=== PATIENT | male | born 1940 | race Caucasian/White ===

== ENCOUNTER 2016-07-05 10:56 | Emergency (ER) | payer MEDICARE, OTHER ==
[~2016-07-05] VITALS: Ht 175.3 cm; Wt 85.0 kg
[~2016-07-05 10:56] MED LIST: AVOD0.5C PO; CARV3.12 OR; CLOB-50 EX; CRES10TA OR; FISH1000 PO; GLUCTAB OR; LISI-357 PO; LORTA5 PO; MONT10 PO; PENVK500 PO; POLY10O EACH EYE; SAXA5TAB2 OR; SERT100 PO; TAMS0.4C67 PO; TRIA.025%T TOP; VIST25CA PO; XANA1TAB6 PO
[2016-07-05 10:59] VITALS: BP 149/81; PULSE 80; RESP 12; TEMP 97.5; O2SAT 95
--- NOTE | 2016-07-05 11:48 | PD ---
HPI Chief Complaint: GI Complaint Time Seen by Provider: 11:41 Travel History International Travel<30 days: No Contact w/Intl Traveler<30days: No Traveled to known affect area: No History of Present Illness HPI 75-year-old male presents to the emergency department for evaluation of diarrhea for one week. Patient denies any history of diarrhea this severe. He states he had 4 episodes of diarrhea last night. He woke up this morning and could not make it to the bathroom and had a bowel movement in bed. He states that once he woke up and went to the bathroom, he had another loose stool. Patient states that his daughter gave him Lomotil which is not helping his diarrhea. Patient denies any blood in his stool. He complains of fatigue. He denies he nausea or vomiting. He does report some mild periumbilical and left lower quadrant abdominal pain. He denies any previous abdominal surgeries. He denies any chest pain or shortness of breath. He denies any urinary symptoms. Patient does have a history of pacemaker, BPH, hypertension, diabetes, hyperlipidemia, chronic back pain. He denies being on any antibiotics recently. PFSH Past Medical History Anxiety: Yes Depression: Yes Cardiovascular Problems: Yes ([place], PACEMAKER) High Cholesterol: Yes Coronary Artery Disease: Yes Diabetes: Yes Hypertension: Yes Respiratory: Yes Past Surgical History Coronary Stent: Yes Ear Surgery: Yes (LEFT EAR) Joint Replacement: Yes (LEFT HIP) Other Surgery: Yes (pacemaker) Social History Alcohol Use: No Tobacco Use: Yes Substance Use: No Allergies-Medications (Allergen,Severity, Reaction): Uncoded Allergies: EGG WHITES (Allergy, Severe, Hives, 06/19/12) NUTS (Allergy, Severe, 06/19/12) GRAPES (Adverse Reaction, Severe, 06/19/12) Reported Meds & Prescriptions Reported Meds & Active Scripts Active Penicillin V Potassium 500 Mg Tab 500 Mg PO BID 10 Days Polytrim Opth (Polymyxin/Trimethoprim Sulfate) 10 Ml Soln 1 Drop EACH EYE QID 5 Days Vistaril (Hydroxyzine Pamoate) 25 Mg Cap 25 Mg PO Q6-8HPRN FOR ITCHING Clobetasol Propionate Emo (Clobetasol Propionate [place]ollien) 0.05 % Cre 0.05 % EX BID 14 Days Reported Aristocort (Triamcinolone Acetonide) 0.025 % Oin 0.025 % TOP BID Fish Oil 1,000 Mg Cap 1,000 Mg PO DAILY Metformin (Metformin HCl) 500 Mg Tab 500 Mg OR BID Carvedilol 3.125 mg (Carvedilol) 3.125 Mg Tab 3.125 Mg OR BID Lisinopril 5 mg (Lisinopril) 5 Mg Tab 5 Mg PO DAILY Crestor (Rosuvastatin Calcium) 10 Mg Tab 10 Mg OR DAILY [place] 5/325 (Hydrocodone/Acetaminophen 5/325) 325 Mg/5 Mg Tab 1 Tab PO Q8HPRN Montelukast Sodium 10 Mg Tab 10 Mg PO DAILY Avodart (Dutasteride) 0.5 Mg Cap 0.5 Mg PO DAILY Onglyza (Saxagliptin Hydrochloride) 5 Mg Tab 5 Mg OR DAILY Flomax (Tamsulosin HCl) 0.4 Mg Cap 0.4 Mg PO DAILY Zoloft (Sertraline HCl) 100 Mg Tab 100 Mg PO DAILY Xanax 1 mg (Alprazolam) 1 Mg Tab 1 Mg PO TID Review of Systems Except as stated in HPI: all other systems reviewed are Neg Physical Exam Narrative GENERAL: Well-developed well-nourished elderly male patient, ambulatory. Afebrile. SKIN: Warm and dry. HEAD: Normocephalic. Atraumatic. EYES: No scleral icterus. No injection or drainage. NECK: Supple, trachea midline. No JVD or lymphadenopathy. CARDIOVASCULAR: Regular rate and rhythm without murmurs, gallops, or rubs. RESPIRATORY: Breath sounds equal bilaterally. No accessory muscle use. Lungs sounds are clear to auscultation. GASTROINTESTINAL: Abdomen soft and nondistended. Patient has mild tenderness over left lower quadrant. MUSCULOSKELETAL: No cyanosis, or edema. BACK: Nontender without obvious deformity. No CVA tenderness. Data Data Last Documented VS Vital Signs Date Time Temp Pulse Resp B/P Pulse Ox O2 Delivery O2 Flow Rate FiO2 07/05/16 10:59 97.5 80 12 149/81 95 Room Air Orders Complete Blood Count With Diff (07/05/16 11:39) Comprehensive Metabolic Panel (07/05/16 11:39) Lipase (07/05/16 11:39) Urinalysis - C+S If Indicated (07/05/16 11:39) Electrocardiogram (07/05/16 11:39) C Diff Toxin Pcr (07/05/16 11:39) Ct Abd/Pel W/O Iv Contrast (07/05/16 ) Labs Laboratory Tests Test 07/05/16 07/05/16 11:53 11:55 White Blood Count 9.4 TH/MM3 Red Blood Count 4.28 MIL/MM3 Hemoglobin 12.9 GM/DL Hematocrit 37.9 % Mean Corpuscular Volume 88.6 FL Mean Corpuscular Hemoglobin 30.0 PG Mean Corpuscular Hemoglobin 33.9 % Concent Red Cell Distribution Width 13.7 % Platelet Count 174 TH/MM3 Mean Platelet Volume 7.9 FL Neutrophils (%) (Auto) 80.7 % Lymphocytes (%) (Auto) 8.5 % Monocytes (%) (Auto) 9.0 % Eosinophils (%) (Auto) 1.4 % Basophils (%) (Auto) 0.4 % Neutrophils # (Auto) 7.6 TH/MM3 Lymphocytes # (Auto) 0.8 TH/MM3 Monocytes # (Auto) 0.8 TH/MM3 Eosinophils # (Auto) 0.1 TH/MM3 Basophils # (Auto) 0.0 TH/MM3 CBC Comment DIFF FINAL Differential Comment Sodium Level 142 MEQ/L Potassium Level 3.6 MEQ/L Chloride Level 108 MEQ/L Carbon Dioxide Level 26.1 MEQ/L Anion Gap 8 MEQ/L Blood Urea Nitrogen 17 MG/DL Creatinine 0.92 MG/DL Estimat Glomerular Filtration 80 ML/MIN Rate Random Glucose 142 MG/DL Calcium Level 8.4 MG/DL Total Bilirubin 1.1 MG/DL Aspartate Amino Transf 15 U/L (AST/SGOT) Alanine Aminotransferase 19 U/L (ALT/SGPT) Alkaline Phosphatase 44 U/L Total Protein 6.3 GM/DL Albumin 3.7 GM/DL Lipase 105 U/L Urine Color YELLOW Urine Turbidity HAZY Urine pH 5.5 Urine Specific [place] 1.023 Urine Protein 30 mg/dL Urine Glucose (UA) NEG mg/dL Urine Ketones NEG mg/dL Urine Occult Blood NEG Urine Nitrite NEG Urine Bilirubin NEG Urine Urobilinogen LESS THAN 2.0 MG/DL Urine Leukocyte Esterase NEG Urine WBC 2 /hpf Urine Squamous Epithelial <1 /hpf Cells Urine Amorphous Sediment RARE Urine Hyaline Casts 5 /lpf Urine Mucus FEW /lpf Microscopic Urinalysis Comment CULT NOT INDICATED MDM Medical Decision Making Medical Screen Exam Complete: Yes Emergency Medical Condition: Yes Medical Record Reviewed: Yes Interpretation(s) Last Impressions Abdomen/Pelvis CT 07/05/16 0000 Signed Impressions: Service Date/Time: Tuesday, July 05, 2016 14:13 - CONCLUSION: 1. Mildly nonspecific, nonobstructive bowel gas pattern which could represent a mild ileus or gastroenteritis. 2. Tiny nonobstructing bilateral renal calculi apparent cyst in the upper pole the right kidney. Julio Hernandez MD Differential Diagnosis C. difficile versus gastroenteritis versus diverticulitis versus electrolyte abnormality versus dehydration Narrative Course 75-year-old male presents to the emergency department for evaluation of diarrhea for one week. He has been taking Lomotil that was given to him by his daughter without improvement. Patient states diarrhea is so severe that he has not been making it to the bathroom which is unusual for him. He reports fatigue. EKG, CBC, CMP, lipase, UA, stool for C. difficile are ordered. EKG shows sinus rhythm, heart rate 67, no acute ST changes. Right bundle branch block noted. This was reviewed by my attending physician, Dr. Marrufo.. CBC shows normal WBC of 9.4. CMP shows no acute abnormalities. UA shows no evidence of infection. CT abdomen/pelvis shows mildly nonspecific, nonobstructive bowel gas pattern which could represent a mild ileus or gastroenteritis. 2. Tiny nonobstructing bilateral renal calculi apparent cyst in the upper pole the right kidney. My attending physician, Dr. Marrufo, has also examined patient and agrees with plan and disposition. Patient will be discharged prescription for Flagyl and probiotic. He is encouraged to follow-up with his primary care physician. He is to return for any acute worsening of symptoms. Patient is agreeable. Diagnosis Primary Impression: Gastroenteritis Additional Impression: Diarrhea Qualified Code: A09 - Diarrhea of presumed infectious origin Referrals: Primary Care Physician call for appointment Patient Instructions: Acute Diarrhea (ED), General Instructions Additional Instructions: Take Flagyl as directed. Do not drink alcohol while taking this medication. Take probiotic as directed. Follow-up with your primary care physician. Return to the emergency department for any acute worsening of symptoms. Med/Other Pt SpecificInfo: Prescription(s) given Scripts Lactobacillus Rhamnosus (GG) (Culturelle)10 B Cell Cap1 Cap PO BID 10 Days Ref 0 Prov:Lluvia Bach 07/05/16 Metronidazole (Flagyl)500 Mg [id number] Mg PO TID 10 Days Ref 0 Prov:Lluvia Bach 07/05/16 Disposition: 01 DISCHARGE HOME Condition: Stable Lluvia Bach Jul 05, 2016 11:48
[2016-07-05 12:13] LABS: AUTOMATED NEUTROPHIL # 7.6 TH/MM3 (1.8-7.7); BASOPHIL % 0.4 % (0.0-2.0); EOSINOPHIL # 0.1 TH/MM3 (0-0.4); EOSINOPHIL % 1.4 % (0.0-4.0); HEMATOCRIT 37.9 % (39.0-51.0); HEMO FLAGS DIFF FINAL; LYMPH % 8.5 % (9.0-44.0); LYMPHOCYTE # 0.8 TH/MM3 (1.0-4.8); MEAN CELL VOLUME 88.6 FL (80.0-100.0); MEAN CORPUSCULAR HGB CONC 33.9 % (32.0-36.0); NEUT % 80.7 % (16.0-70.0); PLATELET COUNT 174 TH/MM3 (150-450); RED BLOOD COUNT 4.28 MIL/MM3 (4.50-5.90); RED CELL DISTRIBUTION WIDTH 13.7 % (11.6-17.2); WHITE BLOOD COUNT 9.4 TH/MM3 (4.0-11.0)
[2016-07-05 12:19] LABS: BLOOD, URINE NEG (NEG); COMMENT (UR) CULT NOT INDICATED; CULTURE IF INDICATED CULT NOT INDICATED; GLUCOSE,URINE NEG (NEG); HYALINE CAST, URINE 5 /lpf (RARE); KETONE, URINE NEG (NEG); MUCUS URINE FEW /lpf (OCC); NITRITE,URINE NEG (NEG); PH, URINE 5.5 (5.0-8.5); SQUAMOUS EPITHELIAL CELL URINE <1 /hpf (0-5); URINE COLOR YELLOW (YELLW/STRAW)
[2016-07-05 12:40] LABS: ALT (GPT) 19 U/L (12-78); ANION GAP 8 MEQ/L (5-15); AST (GOT) 15 U/L (15-37); BICARBONATE 26.1 MEQ/L (21.0-32.0); BLOOD UREA NITROGEN 17 MG/DL (7-18); CHLORIDE 108 MEQ/L (98-107); GLOMERULAR FILTRATION RATE 80 ML/MIN (>89); POTASSIUM 3.6 MEQ/L (3.5-5.1); SODIUM (NA) 142 MEQ/L (136-145)
[2016-07-05 12:42] LABS: ALKALINE PHOSPHATASE 44 U/L (45-117); TOTAL BILIRUBIN ADULT 1.1 MG/DL (0.2-1.0)
--- NOTE | 2016-07-05 14:41 | RADRPT ---
EXAM DATE/TIME: 07/05/2016 14:13 [facility] COMPARISON: No previous studies available for comparison. INDICATIONS : Diarrhea for one week. Weakness. ORAL CONTRAST: No oral contrast ingested. RADIATION DOSE: 15.06 CTDIvol (mGy) MEDICAL HISTORY : Cardiovascular disease. Hypertension. Diabetes mellitus type 2. SURGICAL HISTORY : None. ENCOUNTER: Initial ACUITY: 1 day PAIN SCALE: 4/10 LOCATION: abdomen TECHNIQUE: Volumetric scanning of the abdomen and pelvis was performed. Using automated exposure control and ad justment of the mA and/or kV according to patient size, radiation dose was kept as low as reasonably achievable to obtain optimal diagnostic quality images. FINDINGS: LOWER LUNGS: The visualized lower lungs are clear. LIVER: Homogeneous density without lesion. There is no dilation of the biliary tree. No calcified gallston es. SPLEEN: Normal size without lesion. PANCREAS: Within normal limits. KIDNEYS: Normal in size and shape. There is no solid mass or hydronephrosis. There are tiny less than 1 mm bi lateral renal calculi. Ureters are unremarkable. There is apparent cyst in the upper pole of the righ t kidney. ADRENAL GLANDS: Within normal limits. VASCULAR: There is no aortic aneurysm. BOWEL/MESENTERY: Gas and stool are noted segmentally in the colon. There are several loops of nondilated air-containin g small bowel several small air fluid levels. There is no free air or fluid. There is no free intrape ritoneal air or fluid. ABDOMINAL WALL: Within normal limits. RETROPERITONEUM: There is no lymphadenopathy. BLADDER: No wall thickening or mass. REPRODUCTIVE: Within normal limits. INGUINAL: There is no lymphadenopathy or hernia. MUSCULOSKELETAL: Does post left hip arthroplasty. There is osteopenia, degenerative change and mild scoliosis. CONCLUSION: 1. Mildly nonspecific, nonobstructive bowel gas pattern which could represent a mild ileus or gastroe nteritis. 2. Tiny nonobstructing bilateral renal calculi apparent cyst in the upper pole the right kidney. Julio Hernandez MD on July 05, 2016 at 14:34 Board Certified Radiologist. This report was verified electronically.
[2016-07-05] MEDS ORDERED: METR-1 PO (15:06)
[2016-07-05] MEDS ORDERED: CULT10CA4 PO (15:09)
--- NOTE | 2016-07-05 15:24 | PD ---
Data Data Last Documented VS Vital Signs Date Time Temp Pulse Resp B/P Pulse Ox O2 Delivery O2 Flow Rate FiO2 07/05/16 15:21 18 07/05/16 10:59 97.5 80 149/81 95 Room Air Orders Complete Blood Count With Diff (07/05/16 11:39) Comprehensive Metabolic Panel (07/05/16 11:39) Lipase (07/05/16 11:39) Urinalysis - C+S If Indicated (07/05/16 11:39) Electrocardiogram (07/05/16 11:39) C Diff Toxin Pcr (07/05/16 11:39) Ct Abd/Pel W/O Iv Contrast (07/05/16 ) Labs Laboratory Tests Test 07/05/16 07/05/16 11:53 11:55 White Blood Count 9.4 TH/MM3 Red Blood Count 4.28 MIL/MM3 Hemoglobin 12.9 GM/DL Hematocrit 37.9 % Mean Corpuscular Volume 88.6 FL Mean Corpuscular Hemoglobin 30.0 PG Mean Corpuscular Hemoglobin 33.9 % Concent Red Cell Distribution Width 13.7 % Platelet Count 174 TH/MM3 Mean Platelet Volume 7.9 FL Neutrophils (%) (Auto) 80.7 % Lymphocytes (%) (Auto) 8.5 % Monocytes (%) (Auto) 9.0 % Eosinophils (%) (Auto) 1.4 % Basophils (%) (Auto) 0.4 % Neutrophils # (Auto) 7.6 TH/MM3 Lymphocytes # (Auto) 0.8 TH/MM3 Monocytes # (Auto) 0.8 TH/MM3 Eosinophils # (Auto) 0.1 TH/MM3 Basophils # (Auto) 0.0 TH/MM3 CBC Comment DIFF FINAL Differential Comment Sodium Level 142 MEQ/L Potassium Level 3.6 MEQ/L Chloride Level 108 MEQ/L Carbon Dioxide Level 26.1 MEQ/L Anion Gap 8 MEQ/L Blood Urea Nitrogen 17 MG/DL Creatinine 0.92 MG/DL Estimat Glomerular Filtration 80 ML/MIN Rate Random Glucose 142 MG/DL Calcium Level 8.4 MG/DL Total Bilirubin 1.1 MG/DL Aspartate Amino Transf 15 U/L (AST/SGOT) Alanine Aminotransferase 19 U/L (ALT/SGPT) Alkaline Phosphatase 44 U/L Total Protein 6.3 GM/DL Albumin 3.7 GM/DL Lipase 105 U/L Urine Color YELLOW Urine Turbidity HAZY Urine pH 5.5 Urine Specific [place] 1.023 Urine Protein 30 mg/dL Urine Glucose (UA) NEG mg/dL Urine Ketones NEG mg/dL Urine Occult Blood NEG Urine Nitrite NEG Urine Bilirubin NEG Urine Urobilinogen LESS THAN 2.0 MG/DL Urine Leukocyte Esterase NEG Urine WBC 2 /hpf Urine Squamous Epithelial <1 /hpf Cells Urine Amorphous Sediment RARE Urine Hyaline Casts 5 /lpf Urine Mucus FEW /lpf Microscopic Urinalysis Comment CULT NOT INDICATED MDM Supervised Visit with LUIS: Yes Narrative Course I, Dr. Marrufo, have reviewed the advance practice practioner's documentation and am in agreement, met with the patient face to face, made the diagnosis, and the medical decision making was done by me. *My assessment and Findings: 75-year-old male here with complaint of one week of mild abdominal cramping and severe diarrhea, multiple episodes of fecal incontinence. No hematemesis or hematochezia. Abdominal examination is benign without any reproducible tenderness palpation. Differential includes infectious diarrhea, dehydration, O and abnormality, colitis, diverticulitis, C. difficile. Laboratory workup and CT abdomen and pelvis were unremarkable. Patient unable to produce sample for C. difficile testing area and we'll treat empirically with Flagyl. Patient encouraged to follow up with outpatient PCP. Diagnosis Primary Impression: Gastroenteritis Additional Impression: Diarrhea Qualified Code: A09 - Diarrhea of presumed infectious origin Referrals: Primary Care Physician call for appointment Patient Instructions: General Instructions, Acute Diarrhea (ED) Departure Forms: Tests/Procedures Additional Instruction: Take Flagyl as directed. Do not drink alcohol while taking this medication. Take probiotic as directed. Follow-up with your primary care physician. Return to the emergency department for any acute worsening of symptoms. Scripts Lactobacillus Rhamnosus (GG) (Culturelle)10 B Cell Cap1 Cap PO BID 10 Days Ref 0 Prov:Lluvia Bach 07/05/16 Metronidazole (Flagyl)500 Mg [id number] Mg PO TID 10 Days Ref 0 Prov:Lluvia Bach 07/05/16 Disposition: 01 DISCHARGE HOME Condition: Stable Tiffani Marrufo MD Jul 05, 2016 15:24
--- NOTE | 2016-07-06 23:05 | EKG ---
Date Performed: 07/05/2016 Time Performed: 15:01:36 PTAGE: 75 years EKG: Sinus rhythm WITH SINUS ARRHYTHMIA RIGHT BUNDLE BRANCH BLOCK LEFT ANTERIOR FASCICULAR BLOCK ABNORMAL ECG PREVIOUS TRACING : 07/01/2013 03.24 DOCTOR: Marlo Banegas Interpretating Date/Time 07/06/2016 22:59:35
== END 2016-07-05 15:22 | disposition home or self-care (01) ==
LOC: NETRI 10:56
DX: K52.9 Noninfective gastroenteritis and colitis, unspecified (principal); A09 Infectious gastroenteritis and colitis, unspecified; G89.29 Other chronic pain; Z95.0 Presence of cardiac pacemaker; N40.0 Benign prostatic hyperplasia without lower urinary tract symptoms; I10 Essential (primary) hypertension; E11.9 Type 2 diabetes mellitus without complications; I25.10 Atherosclerotic heart disease of native coronary artery without angina pectoris; E78.00 Pure hypercholesterolemia, unspecified; Z72.0 Tobacco use; I49.8 Other specified cardiac arrhythmias; I45.2 Bifascicular block
CPT/HCPCS: 74176; 80053; 81001; 83690; 85025; 93005

== ENCOUNTER 2016-07-15 12:58 | Emergency (ER) | payer MEDICARE, OTHER ==
[~2016-07-15] VITALS: Ht 167.6 cm; Wt 80.0 kg
[~2016-07-15 12:58] MED LIST changes: +CULT10CA4 PO; +METR-1 PO
[2016-07-15 13:03] VITALS: BP 184/95; PULSE 67; RESP 15; TEMP 98.2; O2SAT 98
[2016-07-15 13:33] LABS: BLOOD, URINE NEG (NEG); GLUCOSE,URINE 1000 mg/dL (NEG); HYALINE CAST, URINE 1 /lpf (RARE); KETONE, URINE NEG (NEG); MUCUS URINE FEW /lpf (OCC); NITRITE,URINE NEG (NEG); URINE COLOR YELLOW (YELLW/STRAW)
[2016-07-15 13:34] LABS: AUTOMATED NEUTROPHIL # 4.8 TH/MM3 (1.8-7.7); BASOPHIL # 0.1 TH/MM3 (0-0.2); BASOPHIL % 1.1 % (0.0-2.0); EOSINOPHIL # 0.1 TH/MM3 (0-0.4); EOSINOPHIL % 1.8 % (0.0-4.0); HEMATOCRIT 36.6 % (39.0-51.0); HEMO FLAGS DIFF FINAL; LYMPH % 11.3 % (9.0-44.0); LYMPHOCYTE # 0.7 TH/MM3 (1.0-4.8); MEAN CELL VOLUME 88.1 FL (80.0-100.0); MEAN CORPUSCULAR HEMOGLOBIN 30.2 PG (27.0-34.0); MEAN CORPUSCULAR HGB CONC 34.2 % (32.0-36.0); MONO % 10.4 % (0.0-8.0); NEUT % 75.4 % (16.0-70.0); PLATELET COUNT 173 TH/MM3 (150-450); RED BLOOD COUNT 4.15 MIL/MM3 (4.50-5.90); RED CELL DISTRIBUTION WIDTH 14.1 % (11.6-17.2); WHITE BLOOD COUNT 6.4 TH/MM3 (4.0-11.0)
[2016-07-15 13:35] LABS: COMMENT (UR) CULT NOT INDICATED; CULTURE IF INDICATED CULT NOT INDICATED
[2016-07-15 13:57] LABS: ANION GAP 10 MEQ/L (5-15); AST (GOT) 36 U/L (15-37); BICARBONATE 26.2 MEQ/L (21.0-32.0); BLOOD UREA NITROGEN 11 MG/DL (7-18); CHLORIDE 106 MEQ/L (98-107); GLOMERULAR FILTRATION RATE 82 ML/MIN (>89); POTASSIUM 3.7 MEQ/L (3.5-5.1); SODIUM (NA) 142 MEQ/L (136-145)
[2016-07-15 14:00] LABS: ALKALINE PHOSPHATASE 38 U/L (45-117); ALT (GPT) 38 U/L (12-78); TOTAL BILIRUBIN ADULT 0.6 MG/DL (0.2-1.0)
--- NOTE | 2016-07-15 16:11 | PD ---
HPI Chief Complaint: GI Complaint Time Seen by Provider: 15:50 Travel History International Travel<30 days: No Contact w/Intl Traveler<30days: No Traveled to known affect area: No History of Present Illness HPI This is a 75 year-old gentleman who was seen here on July 05 for gastroenteritis and placed on Flagyl, who presents today with complaints of anxiety. The patient reports that his stool has improved considerably. When I asked him specifically about his bowel movements and GI complaints, the patient states that he's mainly here for anxiety. When I asked him about his anxiety, he stated stated that his current medication is not helping. He then became extremely tearful and broke down crying tone me that he is very sad because his son was killed almost a year ago. When I asked him if if he thought this was contributing to his GI symptoms, he stated "maybe". The patient denies any fevers, chills. The patient denies any nausea vomiting. The patient continued to be tearful. He denies any suicidal or homicidal ideation. He does state that he is willing to speak with someone that could possibly help him with his anxiety and feelings secondary to his son's 1 year anniversary of his . PFSH Past Medical History Anxiety: Yes Depression: Yes Cardiovascular Problems: Yes ([place], PACEMAKER) High Cholesterol: Yes Coronary Artery Disease: Yes Diabetes: Yes Hypertension: Yes Respiratory: Yes Past Surgical History Coronary Stent: Yes Ear Surgery: Yes (LEFT EAR) Joint Replacement: Yes (LEFT HIP) Other Surgery: Yes (pacemaker) Social History Alcohol Use: No Tobacco Use: Yes Substance Use: No Allergies-Medications (Allergen,Severity, Reaction): Uncoded Allergies: EGG WHITES (Allergy, Severe, Hives, 06/19/12) NUTS (Allergy, Severe, 06/19/12) GRAPES (Adverse Reaction, Severe, 06/19/12) Reported Meds & Prescriptions Reported Meds & Active Scripts Active Reported Avodart (Dutasteride) 0.5 Mg Cap 0.5 Mg PO DAILY Crestor (Rosuvastatin Calcium) 10 Mg Tab 10 Mg PO HS Carvedilol 3.125 Mg Tab 3.125 Mg PO BID Xanax (Alprazolam) 1 Mg Tab 1 Mg PO TID Lortab (Hydrocodone-Acetaminophen) 5-325 Mg Tab 1-2 Tab PO Q6H PRN Lisinopril 5 Mg Tab 5 Mg PO DAILY Fish Oil (Trinity-3 Fatty Acids) 1,000 Mg Cap 1,000 Mg PO DAILY Zoloft (Sertraline HCl) 100 Mg Tab 100 Mg PO DAILY Tamsulosin (Tamsulosin HCl) 0.4 Mg Cap 0.4 Mg PO HS Aspir-81 (Aspirin) 81 Mg Tabdr 81 Mg PO DAILY Metformin ER (Metformin HCl) 1,000 Mg [place] 1,000 Mg PO BID With evening meal Review of Systems Except as stated in HPI: all other systems reviewed are Neg General / Constitutional: No: Fever, Chills HENT: No: Headaches, Lightheadedness Cardiovascular: No: Chest Pain or Discomfort, Palpitations Respiratory: No: Cough, Shortness of Breath Gastrointestinal: Positive: Diarrhea (loose stools that are improving.), No: Nausea, Vomiting, Abdominal Pain Physical Exam Narrative GENERAL: Well-developed well-nourished gentleman in no acute respiratory distress SKIN: Warm and dry. HEAD: Atraumatic. Normocephalic. EYES: No scleral icterus. No injection or drainage. ENT: Mucous membranes pink and moist. NECK: Trachea midline. Supple CARDIOVASCULAR: Regular rate and rhythm. No murmur appreciated. RESPIRATORY: No accessory muscle use. Clear to auscultation. Breath sounds equal bilaterally. GASTROINTESTINAL: Abdomen soft, nondistended. No tenderness elicited on exam. MUSCULOSKELETAL: No obvious deformities. No clubbing. No cyanosis. No edema. NEUROLOGICAL: Awake and alert. No obvious cranial nerve deficits. Motor grossly within normal limits. Normal speech. PSYCHIATRIC: Emotionally tearful with sad affect. Data Data Last Documented VS Vital Signs Date Time Temp Pulse Resp B/P Pulse Ox O2 Delivery O2 Flow Rate FiO2 07/15/16 13:03 98.2 67 15 184/95 98 Orders Complete Blood Count With Diff (07/15/16 13:07) Comprehensive Metabolic Panel (07/15/16 13:07) Urinalysis - C+S If Indicated (07/15/16 13:07) Iv Access Insert/Monitor (07/15/16 13:07) Oxygen Administration (07/15/16 13:07) Oximetry (07/15/16 13:07) Lipase (07/15/16 13:07) Psych Screen (07/15/16 16:37) Lorazepam Inj (Ativan Inj) (07/15/16 18:00) Labs Laboratory Tests Test 07/15/16 13:15 White Blood Count 6.4 TH/MM3 Red Blood Count 4.15 MIL/MM3 Hemoglobin 12.5 GM/DL Hematocrit 36.6 % Mean Corpuscular Volume 88.1 FL Mean Corpuscular Hemoglobin 30.2 PG Mean Corpuscular Hemoglobin 34.2 % Concent Red Cell Distribution Width 14.1 % Platelet Count 173 TH/MM3 Mean Platelet Volume 8.2 FL Neutrophils (%) (Auto) 75.4 % Lymphocytes (%) (Auto) 11.3 % Monocytes (%) (Auto) 10.4 % Eosinophils (%) (Auto) 1.8 % Basophils (%) (Auto) 1.1 % Neutrophils # (Auto) 4.8 TH/MM3 Lymphocytes # (Auto) 0.7 TH/MM3 Monocytes # (Auto) 0.7 TH/MM3 Eosinophils # (Auto) 0.1 TH/MM3 Basophils # (Auto) 0.1 TH/MM3 CBC Comment DIFF FINAL Differential Comment Urine Color YELLOW Urine Turbidity CLEAR Urine pH 5.0 Urine Specific [place] 1.019 Urine Protein TRACE mg/dL Urine Glucose (UA) 1000 mg/dL Urine Ketones NEG mg/dL Urine Occult Blood NEG Urine Nitrite NEG Urine Bilirubin NEG Urine Urobilinogen LESS THAN 2.0 MG/DL Urine Leukocyte Esterase NEG Urine RBC 1 /hpf Urine WBC 2 /hpf Urine Hyaline Casts 1 /lpf Urine Mucus FEW /lpf Microscopic Urinalysis Comment CULT NOT INDICATED Sodium Level 142 MEQ/L Potassium Level 3.7 MEQ/L Chloride Level 106 MEQ/L Carbon Dioxide Level 26.2 MEQ/L Anion Gap 10 MEQ/L Blood Urea Nitrogen 11 MG/DL Creatinine 0.90 MG/DL Estimat Glomerular Filtration 82 ML/MIN Rate Random Glucose 264 MG/DL Calcium Level 8.3 MG/DL Total Bilirubin 0.6 MG/DL Aspartate Amino Transf 36 U/L (AST/SGOT) Alanine Aminotransferase 38 U/L (ALT/SGPT) Alkaline Phosphatase 38 U/L Total Protein 6.1 GM/DL Albumin 3.6 GM/DL Lipase 179 U/L [facility] Medical Decision Making Medical Screen Exam Complete: Yes Emergency Medical Condition: Yes Differential Diagnosis Depression versus anxiety versus acute life stressor Narrative Course 75 year-old gentleman who presents with GI complaints initially up at triage. However, upon my questioning, the patient is very anxious and tearful secondary to this coming up on his 1 year anniversary of his son's . The patient is asking for assistance in trying to control his sadness and anxiety. When I asked if he would be willing to speak with one of our counselors, the patient states that he would like to speak with someone about this. Laboratory tests are within normal limits except for elevated blood glucose. Urinalysis is normal. The patient has a non-tender benign abdominal exam. He'll be a consult with the psychiatric screener placed. He currently is not suicidal or homicidal but is very emotionally labile. He does not meet criteria for [place] act. Diagnosis Primary Impression: Anxiety Additional Impression: diarrhea resolving. Grey Morin MD Jul 15, 2016 16:11 Grey Morin MD Jul 15, 2016 16:11
[2016-07-15] MEDS ORDERED: LORazepam 2 MG/ML VIAL IV PUSH ONE (18:00)
[2016-07-15] MEDS ORDERED: XANA1TAB2 PO (18:35)
[2016-07-15] MEDS ORDERED: CARV3.12 PO (18:35)
[2016-07-15] MEDS ORDERED: METF-382 PO (18:35)
[2016-07-15] MEDS ORDERED: ASPI81TA81 PO (18:35)
[2016-07-15] MEDS ORDERED: AVOD0.5C PO (18:35)
[2016-07-15] MEDS ORDERED: FISH1000 PO (18:35)
[2016-07-15] MEDS ORDERED: ZOLO100T PO (18:35)
[2016-07-15] MEDS ORDERED: TAMS0.4C4 PO (18:35)
[2016-07-15] MEDS ORDERED: ROSU10 PO (18:35)
[2016-07-15] MEDS ORDERED: LISI-519 PO (18:35)
[2016-07-15] MEDS ORDERED: HYDR-3533 PO (18:35)
[2016-07-15] MEDS ORDERED: LORazepam 1 MG TAB PO ONE ×2 (19:00→22:15)
[2016-07-16 03:07] VITALS: BP 173/83; PULSE 60; RESP 18; O2SAT 96
== END 2016-07-16 06:32 | disposition home or self-care (01) ==
LOC: NEPE 12:58 → NEPA 07-16 06:32
DX: F41.9 Anxiety disorder, unspecified (principal); K52.9 Noninfective gastroenteritis and colitis, unspecified; E78.00 Pure hypercholesterolemia, unspecified; E11.9 Type 2 diabetes mellitus without complications; I10 Essential (primary) hypertension; Z72.0 Tobacco use
CPT/HCPCS: 80053; 81001; 83690; 85025; 99283